=== PATIENT | male | born 1980 | race African-American/Black ===

== ENCOUNTER 2019-02-25 13:57 | Emergency (ER) | payer OTHER ==
[~2019-02-25] VITALS: Ht 167.6 cm; Wt 52.2 kg
[2019-02-25 14:15] VITALS: BP 120/84
[2019-02-25] MEDS ORDERED: TDAP [DIPH/PERTUSSIS/TET] 0.5 ML VIAL IM ONE ×2 (14:30→14:46)
--- NOTE | 2019-02-25 15:13 | NUR ---
[facility]
== END 2019-02-25 18:19 | disposition home or self-care (01) ==
LOC: ER 14:05
DX: S62.636A Displaced fracture of distal phalanx of right little finger, initial encounter for closed fracture (principal); Z60.2 Problems related to living alone; W23.0XXA Caught, crushed, jammed, or pinched between moving objects, initial encounter; Y93.89 Activity, other specified; Y92.89 Other specified places as the place of occurrence of the external cause; Y99.8 Other external cause status
CPT/HCPCS: 29130; 73140; 90471; 90715; 99283; A6403